=== PATIENT | female | born 1985 | race Caucasian/White ===

== ENCOUNTER 2023-10-22 14:37 | Inpatient (IN) | payer MEDICAID, SELFPAY ==
[2023-10-22 14:54] VITALS: BP 125/78; PULSE 91; RESP 16; TEMP 36.9; O2SAT 97
--- NOTE | 2023-10-22 15:55 | USR_ITS ---
PROCEDURE INFORMATION: Exam: US Left Limited Joint or Other Non-Vascular Extremity Structure Exam date and time: 10/22/2023 4:12 PM Age: 38 years old Clinical indication: Swelling; Arm, upper; Left; Additional info: Abscess L axilla TECHNIQUE: Imaging protocol: US left limited joint or other nonvascular extremity structure. Real-time ultrasound with image documentation. COMPARISON: No relevant prior studies available. FINDINGS: Soft tissues: Minimal soft tissue edema. No loculated collections. US/US soft tissue/extremity 19409 IMPRESSION: Minimal soft tissue edema. No abscess.
--- NOTE | 2023-10-22 15:59 | ED_ITS ---
HPI - Wound/Laceration 2 General: Chief Complaint: Wound/Laceration Stated Complaint: spider bite Time Seen by Provider: 10/22/23 15:38 History of Present Illness: 38-year-old female presents emergency ro om with complaints of open wound in the left axilla. She has a abrasion partial-thickness to the skin on the left forearm that is reddened and inflamed with proximal redness extending up into the left axilla there is a wound in the axilla with an abscess that has opened and drained somewhat. The overlying skin has sloughed off and the adjacent areas is tender to touch. Patient is concerned she was bit by a spider Associated symptoms: Denies chills or fever(s) Related Data Home Medications Medication Instructions Recorded Confirmed No Known Home Medications 04/01/23 04/01/23 Allergies Allergy/AdvReac Type Severity Reaction Status Date / Time No Known Allergies Allergy Verified 10/22/23 15:00 Review of Systems 2 Const: Denies: fever(s) or chills Card: Denies: chest pain Resp: Denies: dyspnea GI: Denies: abdominal pain : Denies: dysuria, urinary frequency or urinary urgency Musc: Denies: neck pain or back pain Skin/Breast: Reports: rash, erythema, skin pain, skin tenderness and new lesions PFSH ED 2 PFSH: Medical History (Updated 10/23/23 @ 15:23 by Jabari Miles DO) No significant past medical history Surgical History (Updated 10/22/23 @ 17:59 by Renato Caldera MD) No significant past surgical history Social History Smoking and tobacco/nicotine status: never used tobacco/nicotine Second hand smoke exposure: No Alcohol intake: never Substance/Drug Use: never Adopted: No Caregiver/support person: No Lives independently: Yes Household members: family Housing: House Marital status: Number of children: 2 service: No Physical Exam 2 Const: COMMON NORMALS: no acute distress GENERAL APPEARANCE: cooperative and comfortable ORIENTATION/CONSCIOUSNESS: Yes awake, Yes oriented to person, Yes oriented to place and Yes oriented to time HENMT: COMMON NORMALS: normocephalic, atraumatic and hearing grossly normal bilaterally HEAD & SCALP: normocephalic and atraumatic Resp: COMMON NORMALS: normal respiratory effort, No retractions, No use of accessory muscles and clear to auscultation bilaterally AUSCULTATION: clear to auscultation bilaterally Cardio: COMMON NORMALS: regular rate, regular rhythm and No murmurs present (Cardio) RATE: regular rate RHYTHM: regular rhythm GI: COMMON NORMALS: Soft to palpation and No hepatosplenomegaly present A USCULTATION: Yes normoactive bowel sounds PALPATION: Yes Soft to palpation, No Tenderness to palpation present (GI), No Guarding due to palpation present (GI) and Yes No hepatosplenomegaly present Extremity: COMMON NORMALS: capillary refill normal, no clubbing, cyanosis or edema, no calf tenderness and no pedal edema OTHER: Large abrasion overlying the volar surface of forearm from a grinder set up operator centerless. There is lymphangitic spread proximally on the medial upper arm and a draining abscess near the axilla. No purulence at this time small open wound some sloughed off overlying skin Neuro: SENSORIUM/ORIENTATION: Yes oriented to person, Yes oriented to place and Yes oriented to time Skin: COMMON NORMALS: no rashes or lesions noted GENERAL SKIN EXAM: no rashes or lesions noted Course 2 Vital Signs: Vital signs: Vital Signs Temperature 98.2 F 10/23/23 12:06 Pulse Rate 76 10/23/23 12:06 Respiratory Rate 16 10/23/23 12:06 Blood Pressure 120/77 10/23/23 12:06 Pulse Oximetry 94 10/23/23 12:06 Oxygen Delivery Me thod Room Air 10/23/23 12:06 MDM - Wound/Laceration Medical Decision Making Suspect this may have emanated from the abrasion from a grinder set up operator centerless on her forearm. Ultrasound the soft tissue did not show any abscess areas. Will start her on vancomycin and cefepime. Additionally patient has significant leukocytopenia. This could possibly fever from the Bactrim. Will hold that cover with other antibiotics will need to be in reverse isolation discussed with hospitalist orders written Medical Records I reviewed the patient's medical records. Lab Data I reviewed the patient's lab results. 10/23/23 03:18 10/23/23 03:18 Radiology Impressions Soft Tissue Ultrasound 10/22/23 15:55 IMPRESSION: Minimal soft tissue edema. No abscess. Forearm CT 10/22/23 20:34 IMPRESSION: 1. Mild subcutaneous fat stranding along the extensor surface of the proximal forearm without abscess formation. 2. No acute osseous findings. Humerus CT 10/22/23 20:34 IMPRESSION: Mild subcutaneous fat stranding and mild skin thickening along the medial/posterior aspect of the upper arm and the anterior axilla. Findings may represent cellulitis. No abscess formation. No definite involvement of the muscular compartments and no evidence of acute osteomyelitis. Laboratory Results WBC 0.75 10^3/uL (3.29-11.43) L* 10/22/23 16:08 RBC 4.95 10^6/uL (3.85-5.65) 10/22/23 16:08 Hgb 14.50 g/dL (11.27-16.99) 10/22/23 16:08 Hct 43.4 % (36-47) 10/22/23 16:08 MCV 87.7 fl (85-98) 10/22/23 16:08 MCH 29.3 pg (27-33) 10/22/23 16:08 MCHC 33.4 g/dL (30-55) 10/22/23 16:08 RDW 12.2 % (12.1-15.1) 10/22/23 16:08 Plt Count 267 10^3/cmm (157-399) 10/22/23 16:08 MPV 8.4 fL (7.4-10.4) 10/22/23 16:08 Neut % (Auto) 1.4 % 10/22/23 16:08 Lymph % (Auto) 78.7 % 10/22/23 16:08 [place] % (Auto) 17.3 % 10/22/23 16:08 Eos % (Auto) 0.0 % 10/22/23 16:08 Baso % (Auto) 1.3 % 10/22/23 16:08 Neut # (Auto) 0.01 10^3/uL (1.8-7.7) L* 10/22/23 16:08 Lymph # (Auto) 0.6 10^3/uL (0.8-4.8) L 10/22/23 16:08 [place] # (Auto) 0.1 10^3/uL (0.2-0.9) L 10/22/23 16:08 Eos # (Auto) 0.0 10^3/uL (0.0-0.8) 10/22/23 16:08 Baso # (Auto) 0.0 10^3/uL (0.0-0.1) 10/22/23 16:08 Nucleated RBC % (auto) 0 % 10/22/23 16:08 Nucleated RBCs # 0.0 /100WBC 10/22/23 16:08 ESR 24 mm/hr (0-15) H 10/22/23 16:08 PT 13.10 SECONDS (12.1-14.9) 10/22/23 16:08 INR 0.96 (0.8-1.2) 10/22/23 16:08 Sodium 141 mmol/L (136-145) 10/22/23 16:08 Potassium 3.6 mmol/L (3.5-5.1) 10/22/23 16:08 Chloride 102 mmol/L (98-107) 10/22/23 16:08 Carbon Dioxide 25 mmol/L (22-29) 10/22/23 16:08 Anion Gap 17.6 (5-19) 10/22/23 16:08 BUN 7 mg/dL (6-20) 10/22/23 16:08 Creatinine 0.8 mg/dL (0.5-0.9) 10/22/23 16:08 GFR Calculation 79.9 mL/min (90-130) L 10/22/23 16:08 Glucose 102 mg/dL (65-115) 10/22/23 16:08 Calculated Osmolality 290 mOsm/kg (285-295) 10/22/23 16:08 Lactic Acid 1.9 mmol/L (0.5-2.2) 10/22/23 16:08 Calcium 9.6 mg/dL (8.5-10.5) 10/22/23 16:08 Ferritin 155 ng/mL (15-150) H 10/22/23 16:08 Total Bilirubin 0.3 mg/dL (0.15-1.2) 10/22/23 16:08 AST 34 U/L (0-32) H 10/22/23 16:08 ALT 98 U/L (0-33) H 10/22/23 16:08 Alkaline Phosphatase 135 U/L (35-105) H 10/22/23 16:08 Creatine Kinase 48 U/L (26-192) 10/22/23 16:08 C-Reactive Protein 85.2 mg/L (0.0-4.9) H 10/22/23 16:08 Total Protein 7.8 g/dL (6.6-8.7) 10/22/23 16:08 Albumin 4.1 g/dL (3.5-5.2) 10/22/23 16:08 Globulin 3.7 g/dL (1.3-4.6) 10/22/23 16:08 Procalcitonin 0.06 ng/mL (0-0.5) 10/22/23 16:08 TSH 1.61 uIU/mL (0.27-4.20) 10/22/23 16:08 Ser , Semi-Qnt 1.00 mIU/mL 10/22/23 16:08 Hepatitis A IgM Ab Non-reactive (Nonreactive) 10/22/23 16:08 Hep Bs Antigen Non-reactive (Nonreactive) 10/22/23 16:08 Hep B Core IgM Ab Non-reactive (Nonreactive) 10/22/23 16:08 Hepatitis C Antibody Non-reactive (Nonreactive) 10/22/23 16:08 HIV 1&2 Ab & HIV 1 Ag Non-reactive (Non-Reactiv) 10/22/23 16:08 HIV 1&2 Antibody Non-reactive (Non-Reactiv) 10/22/23 16:08 All radiology interpretation(s) finalized by discharge Discharge Plan Discharge Patient Disposition: Admitted As Inpatient Admit Provider: Renato Caldera Clinical Impression: Cellulitis, Leukopenia, Transaminitis, Abrasion Condition: Stable Coding Level of Care Code ED 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
[2023-10-22 16:18] LABS: Basophils % 1.3 %; Hematocrit 43.4 % (36-47); Lymphocytes # 0.6 10^3/uL (0.8-4.8); Lymphocytes % 78.7 %; Mean Corpuscular HGB Conc 33.4 g/dL (30-55); Mean Corpuscular Hemoglobin 29.3 pg (27-33); Mean Corpuscular Volume 87.7 fl (85-98); Mean Platelet Volume 8.4 fL (7.4-10.4); Monocytes # 0.1 10^3/uL (0.2-0.9); Monocytes % 17.3 %; Neutrophils % 1.4 %; Nucleated Red Blood Cells % 0 %; Platelet Count 267 10^3/cmm (157-399); Red Blood Count 4.95 10^6/uL (3.85-5.65); Red Cell Distribution Width 12.2 % (12.1-15.1)
[2023-10-22 16:36] LABS: Alanine Aminotransferase 98 U/L (0-33); Albumin Level 4.1 g/dL (3.5-5.2); Alkaline Phosphatase 135 U/L (35-105); Anion Gap 17.6 (5-19); Aspartate Amino Transferase 34 U/L (0-32); Blood Urea Nitrogen 7 mg/dL (6-20); Calcium 9.6 mg/dL (8.5-10.5); Carbon Dioxide 25 mmol/L (22-29); Chloride 102 mmol/L (98-107); Creatinine Clr Calc Pharmacy 102.7607; Globulin 3.7 g/dL (1.3-4.6); Glomerular Filtration Rate 79.9 mL/min (90-130); Glucose 102 mg/dL (65-115); Osmolality Calculated 290 mOsm/kg (285-295); Potassium 3.6 mmol/L (3.5-5.1); Sodium 141 mmol/L (136-145); Total Bilirubin 0.3 mg/dL (0.15-1.2); Total Protein 7.8 g/dL (6.6-8.7)
[2023-10-22 16:37] LABS: Lactic Sepsis W/Reflex 1.9 mmol/L (0.5-2.2)
[2023-10-22 16:44] VITALS: RESP 18; O2SAT 98
[2023-10-22 17:03] LABS: Neutrophils # 0.01 10^3/uL (1.8-7.7); Slide Review Slide Review Perform; White Blood Count 0.75 10^3/uL (3.29-11.43)
[2023-10-22 17:38] LABS: Erythrocyte Sedimentation Rate 24 mm/hr (0-15)
[2023-10-22 17:51] LABS: INR 0.96 (0.8-1.2)
--- NOTE | 2023-10-22 17:58 | P.HP_ITS ---
Providers/Chief Complaint 2 Chief Complaint: spider bite History of Present Illness Joanne Meneses is a 38 year old female with a past medical history of Essure control, history of , who presents [facility] for left arm and forearm swelling with drainage with fevers, chills. Patient tells me that roughly a week ago on Wednesday, she was working outside in her shop, with a metal Wes, she was sanding an object, when it backfired, resulting in a superficial linear laceration of her forearm, slight evidence of bleeding, but the wound was quite superficial she tells me, she that during night, noticed that she developed a bump in her left axilla, she is not sure if this was an insect bite, but over the next few days she started developing fevers, chills, fatigue, malaise, she tells me that along the left axilla she started developing an area of open drainage, with swelling, erythema, tenderness with surrounding erythema, she also started to develop erythema swelling and tenderness for the area that she had a superficial abrasion. She tells me that she does regularly pick takes off herself. She tells her that she saw her primary care provider she did receive a tetanus vaccination through her primary care. She also received 2 rounds of antibiotics including clindamycin, and Bactrim without significant improvement. Due to persistence of erythema, swelling, tenderness and persistent drainage with systemic symptoms of fevers and chills, she came to the emergency room. In the emergency room she was found to have a white blood cell count 0.75, neutrophilic and lymphocytic leukopenia, transaminitis, soft tissue ultrasound does not show any evidence of deep abscess, hospitalist team was called for admission Review of Systems 2 Const: Reports: fever(s) and chills Card: Denies: chest pain Resp: Denies: dyspnea GI: Denies: abdominal pain Skin/Breast: Reports: rash Medications/Allergies Home Medications Medication Instructions Recorded Confirmed Last Taken Type No Known Home Medications 04/01/23 04/01/23 Unknown History Allergies Allergy/AdvReac Type Severity Reaction Status Date / Time No Known Allergies Allergy Verified 10/22/23 15:00 PFSH Acute 2 PFSH: Medical History (Updated 10/22/23 @ 18:03 by Renato Caldera MD) No significant past medical history Surgical History (Updated 10/22/23 @ 17:59 by Renato Caldera MD) No significant past surgical history Social History Smoking and tobacco/nicotine status: never used tobacco/nicotine Second hand smoke exposure: No Alcohol intake: never Substance/Drug Use: never Adopted: No Caregiver/support person: No Lives independently: Yes Household members: family Housing: House Marital status: Number of children: 2 service: No Vitals/I&O/Wt Last Vital Signs Temp 98.4 F 10/22/23 14:54 Pulse 91 10/22/23 14:54 Resp 18 10/22/23 16:44 BP 125/78 10/22/23 14:54 Pulse Ox 98 10/22/23 16:44 O2 Del Method Room Air 10/22/23 16:44 Weight last 48 hrs Weight 68.946 kg Physical Exam 2 Const: COMMON NORMALS: no acute distress and patient oriented x3 HENMT: COMMON NORMALS: normocephalic HEAD & SCALP: normocephalic Resp: COMMON NORMALS: normal respiratory effort, No retractions, No use of accessory muscles and clear to auscultation bilaterally AUSCULTATION: clear to auscultation bilaterally Cardio: COMMON NORMALS: regular rate, regular rhythm, S1 normal heart sound present and S2 normal heart sound present RATE: regular rate RHYTHM: r egular rhythm HEART SOUNDS: S1 normal heart sound present and S2 normal heart sound present GI: COMMON NORMALS: Normal to inspection, nondistended, normoactive bowel sounds present, Soft to palpation and non-tender Extremity: COMMON NORMALS: no calf tenderness and no pedal edema Neuro: COMMON NORMALS: patient oriented x3 Psych: COMMON NORMALS: mental status grossly normal Skin: NARRATIVE SKIN EXAM: Left forearm, superficial abrasion, roughly 10 cm long, with surrounding erythema, no open drainage Enlarged and tender brachial lymph node ? On the arm, area of erythema, measuring 5 x 5 cm, irregular borders with superficial tenderness, palpable purulence but seems superficial, area of open purulent drainage ? Tenderness, axillary lymph node, enlarged ? Tenderness enlarged cervical lymph node Data 10/22/23 16:08 10/22/23 16:08 Micro: Microbiology 10/22/23 17:38 Blood Culture - Preliminary Blood SPECIMEN COLLECTED 10/22/23 16:08 Blood Culture - Preliminary Blood SPECIMEN COLLECTED A&P Assessment and plan (1) Cellulitis: (2) Leukopenia: (3) Transaminitis: Plan Cellulitis -Left forearm, associated with her superficial abrasion from metal Wes, with surrounding erythema no open drainage, no palpable abnormalities, erythematous, swollen, tender, roughly 10 cm long -She also has tender and enlarged brachial lymph nodes -In her forearm she has a area of cellulitis, with superficial palpable areas, currently not drainable -Distal to this near the axilla she has an open area of purulent drainage, roughly 5 x 5 cm -She has tender enlarged axillary lymph nodes -Findings concerning for cellulitis, superficial abscess draining through open area, possible lymphangitis? -Possible insect bite? -Possible tick bite/ -With leukopenia, neutrophilic, lymphocytic -With transaminitis Plan ?Blood cultures -Wound cultures -Vancomycin -Zosyn -Monitor clinical site closely -Isolation precautions given neutropenia -HIV, acute hep panel, tick panel, CPK, Pro-Cameron, CRP, sed rate -Will continue to monitor site closely, currently area in the arm does not seem to need drainage, but as time progresses, the area of cellulitis, might contract, forming an abscess needing drainage -Monitor closely -Full code Lovenox for DVT prophylaxis Attestations 2 Medical Necessity Statement*: Patient requires hospitalization, inpatient, greater than 2 midnights, for leukopenia, with cellulitis, with superficial abscess, transaminitis, associate with skin abrasion Coding Level of Care Code Acute Code for [facility] Diagnoses Cellulitis L03.90 Leukopenia D72.819 Transaminitis R74.01
[2023-10-22 18:05] LABS: Procalcitonin 0.06 ng/mL (0-0.5)
--- NOTE | 2023-10-22 18:11 | PHA.VACGOAL ---
Vancomycin Goal - Goal Vancomycin Goal:: 10-15 mg/L Vancomycin Indication:: Other (SPIDER BITE) - Therapy Current therapy:: Pip/Tazo, Other Antibiotic (DOXYCYLINE) Day of therpy:: Day [1]of [] Actual body weight (kg): 68.946 kg [place] body weight: 40.9 kg Dosing weight (kg): 52.1 kg - Data Labs: WBC 0.75 10^3/uL (3.29-11.43) L* 10/22/23 16:08 RBC 4.95 10^6/uL (3.85-5.65) 10/22/23 16:08 Hgb 14.50 g/dL (11.27-16.99) 10/22/23 16:08 Hct 43.4 % (36-47) 10/22/23 16:08 MCV 87.7 fl (85-98) 10/22/23 16:08 MCH 29.3 pg (27-33) 10/22/23 16:08 MCHC 33.4 g/dL (30-55) 10/22/23 16:08 RDW 12.2 % (12.1-15.1) 10/22/23 16:08 Sodium 141 mmol/L (136-145) 10/22/23 16:08 Potassium 3.6 mmol/L (3.5-5.1) 10/22/23 16:08 Chloride 102 mmol/L (98-107) 10/22/23 16:08 Carbon Dioxide 25 mmol/L (22-29) 10/22/23 16:08 Anion Gap 17.6 (5-19) 10/22/23 16:08 BUN 7 mg/dL (6-20) 10/22/23 16:08 Creatinine 0.8 mg/dL (0.5-0.9) 10/22/23 16:08 GFR Calculation 79.9 mL/min (90-130) L 10/22/23 16:08 Last dialysis session:: N/A Treatment plan:: new consult Regimen:: INITIAL DOSE 1000 MG Q24H Follow up:: TROUGH TO BE OBTAINED PRIOR TO 4TH DOSE WILL MONITOR RENAL FUNCTION AND CONTINUE TO FOLLOW UP <Domenic Landers - Last Filed: 10/22/23 18:11> - Therapy Day of therpy:: Day [3]of [] . Actual body weight (kg): 72.847 g [place] body weight: 43.2 kg Dosing weight (kg): 72.847 - Data Labs: WBC 1.49 10^3/uL (3.29-11.43) L 10/24/23 04:25 RBC 4.24 10^6/uL (3.85-5.65) 10/24/23 04:25 Hgb 12.50 g/dL (11.27-16.99) 10/24/23 04:25 Hct 38.5 % (36-47) 10/24/23 04:25 MCV 90.8 fl (85-98) 10/24/23 04:25 MCH 29.5 pg (27-33) 10/24/23 04:25 MCHC 32.5 g/dL (30-55) 10/24/23 04:25 RDW 12.2 % (12.1-15.1) 10/24/23 04:25 Sodium 139 mmol/L (136-145) 10/24/23 04:25 Potassium 3.6 mmol/L (3.5-5.1) 10/24/23 04:25 Chloride 106 mmol/L (98-107) 10/24/23 04:25 Carbon Dioxide 22 mmol/L (22-29) 10/24/23 04:25 Anion Gap 14.6 (5-19) 10/24/23 04:25 BUN 5 mg/dL (6-20) L 10/24/23 04:25 Creatinine 0.6 mg/dL (0.5-0.9) 10/24/23 04:25 GFR Calculation 111.3 mL/min (90-130) 10/24/23 04:25 Treatment plan:: continue Regimen:: Changed to Vancomycin 1250mg Q12H based on improvement of kidney function Follow up:: will order trough prior to 4th dose <Mikki Fernandez - Last Filed: 10/24/23 07:40>
[2023-10-22 18:28] LABS: C Reactive Protein 85.2 mg/L (0.0-4.9); Creatine Phosphokinase 48 U/L (26-192); Ferritin 155 ng/mL (15-150)
[2023-10-22] MEDS: doxycycline 100 mg Tablet PO (18:48)
[2023-10-22] MEDS: cefepime 1,000 MG in sodium chloride 0.9% (plus) 50 ML 100 MG IV (18:48)
[2023-10-22 18:49] LABS: HIV 1 & 2 Antibody Non-Reactive (Non-Reactiv); HIV 1 & 2 Antigen Non-Reactive (Non-Reactiv)
[2023-10-22] MEDS: vancomycin 1,000 MG in sodium chloride 0.9% 250 ML 250 MG IV (19:22)
[2023-10-22] MEDS: piperacillin-tazobactam 3.375 GM in sodium chloride 0.9% (plus) 50 ML IV (19:22)
[2023-10-22 19:24] VITALS: BP 131/79
[2023-10-22 20:20] VITALS: BP 129/76; PULSE 84; RESP 16; O2SAT 98
--- NOTE | 2023-10-22 20:23 | PC.NURSE ---
Day shift RN ran Zosyn in over 30mins not realizing the order was for 4hrs.
[2023-10-22 20:34] VITALS: BP 128/76; PULSE 86; RESP 20; TEMP 37; O2SAT 97
--- NOTE | 2023-10-22 20:34 | CTR_ITS ---
PROCEDURE INFORMATION: Exam: CT Left Upper Extremity Without Contrast, Upper Arm Exam date and time: 10/22/2023 9:21 PM Age: 38 years old Clinical indication: Swelling; Arm, upper; Upper arm; Patient HX: C/O pain due to cellulities with drainage to left medial axilla, distal medial humerus, and proximal medial forearm. ; Additional info: Arm, cellulitis, lymphangitis, open drainage TECHNIQUE: Imaging protocol: Computed tomography of the left upper extremity without contrast. Exam focused on the upper arm. Radiation optimization: All CT scans at this facility use at least one of these dose optimization techniques: automated exposure control; mA and/or kV adjustment per patient size (includes targeted exams where dose is matched to clinical indication); or iterative reconstruction. COMPARISON: CT forearm LT wo con* [id number] 10/22/2023 9:16 PM RADIATION DOSE METRICS: Total DLP (mGy-cm): 547.71 FINDINGS: Bones/joints: Normal. No acute fracture or dislocation. No cortical irregularity to suggest acute osteomyelitis. Soft tissues: Mild subcutaneous fat stranding with areas of mild skin thickening are seen in the mid to distal upper arm, predominately along the medial/posterior aspect. There is also mild subcutaneous fat stranding in the axillary region anteriorly. No loculated fluid collections. CT/CT humerus LT wo con* [id number] IMPRESSION: Mild subcutaneous fat stranding and mild skin thickening along the medial/posterior aspect of the upper arm and the anterior axilla. Findings may represent cellulitis. No abscess formation. No definite involvement of the muscular compartments and no evidence of acute osteomyelitis.
--- NOTE | 2023-10-22 20:34 | CTR_ITS ---
PROCEDURE INFORMATION: Exam: CT Left Upper Extremity Without Contrast, Forearm Exam date and time: 10/22/2023 9:16 PM Age: 38 years old Clinical indication: Swelling; Arm, lower; Lower or forearm; Patient HX: C/O pain due to cellulities with drainage to left medial axilla, distal medial humerus, and proximal medial forearm. ; Additional info: Swelling pain, area of superfical laceration, cellulitis TECHNIQUE: Imaging protocol: Computed tomography of the left upper extremity without contrast. Exam focused on the forearm. Radiation optimization: All CT scans at this facility use at least one of these dose optimization techniques: automated exposure control; mA and/or kV adjustment per patient size (includes targeted exams where dose is matched to clinical indication); or iterative reconstruction. COMPARISON: US soft tissue/extremity [id number] 10/22/2023 4:12 PM RADIATION DOSE METRICS: Total DLP (mGy-cm): 547.71 FINDINGS: Bones/joints: Normal. No acute fracture or dislocation. No cortical irregularity to suggest osteomyelitis. Soft tissues: Mild subcutaneous fat stranding and skin thickening along the proximal aspect of the forearm, most pronounced along the ulnar/extensor aspect. No loculated fluid collections. No definite involvement of the muscular compartments. CT/CT forearm LT wo con* [id number] IMPRESSION: 1. Mild subcutaneous fat stranding along the extensor surface of the proximal forearm without abscess formation. 2. No acute osseous findings.
[2023-10-22 21:02] LABS: Hepatitis A Antibody IgM Non-Reactive (Nonreactive); Hepatitis B Core IgM Non-Reactive (Nonreactive); Hepatitis B Surface Antigen Non-Reactive (Nonreactive); Hepatitis C Virus Antibody Non-Reactive (Nonreactive)
[2023-10-22 21:27] LABS: Thyroid Stimulating Hormone 1.61 uIU/mL (0.27-4.20)
[2023-10-22 21:54] VITALS: BMI 31.4
[2023-10-22] MEDS: enoxaparin 40 mg/0.4 mL Syringe SUBCUT (22:34)
[2023-10-22] MEDS: sodium chloride 0.9% 1,000 ML 75 ML IV (22:35)
[2023-10-22 23:02] LABS: Charge for UA Resulting for Rev
[2023-10-22 23:04] LABS: Bilirubin Urine Negative (Negative); Blood Urine Negative (Negative); Glucose Urine UA Negative (Normal); Ketones Urine Negative (Negative); Leukocyte Esterase Urine Negative (Negative); Nitrate Urine Negative (Negative); Protein Urine Negative (Negative); Specific Gravity, Urine 1.018 (1.005-1.030); Urine Appearance Clear (CLEAR); Urine Color Yellow (Yellow)
[2023-10-22 23:12] LABS: Bacteria Urine None Seen /hpf; Hyaline Casts Urine 0-4 /lpf; RBC Urine 0-2 /hpf (0-2); WBC Urine 0-5 /hpf (0-5)
[2023-10-22 23:47] VITALS: BP 107/69; PULSE 76; RESP 20; TEMP 36.8; O2SAT 95
[2023-10-23] VITALS (7 sets, daily range): BP systolic 103–157; BP diastolic 68–82; PULSE 76–89; RESP 16–20; TEMP 36.7–37.1; O2SAT 94–97
--- NOTE | 2023-10-23 00:33 | PC.NURSE ---
wound cultures ordered for patient wound on upper left arm. Wound is currently not open and/or draining. Dr Jack was notified and was told to address with morning team. No cultures were obtained due to no drainage
[2023-10-23] MEDS: piperacillin-tazobactam 3.375 GM in sodium chloride 0.9% (plus) 50 ML IV ×3 (01:50→17:45)
[2023-10-23 04:14] LABS: Basophils % 0.9 %; Hematocrit 39.6 % (36-47); Lymphocytes # 0.7 10^3/uL (0.8-4.8); Lymphocytes % 69.8 %; Mean Corpuscular HGB Conc 32.8 g/dL (30-55); Mean Corpuscular Hemoglobin 29.6 pg (27-33); Mean Corpuscular Volume 90.2 fl (85-98); Mean Platelet Volume 8.7 fL (7.4-10.4); Monocytes # 0.3 10^3/uL (0.2-0.9); Monocytes % 25.5 %; Neutrophils % 2.9 %; Nucleated Red Blood Cells % 0 %; Platelet Count 252 10^3/cmm (157-399); Red Blood Count 4.39 10^6/uL (3.85-5.65); Red Cell Distribution Width 12.2 % (12.1-15.1); White Blood Count 1.06 10^3/uL (3.29-11.43)
[2023-10-23 04:47] LABS: Neutrophils # 0.03 10^3/uL (1.8-7.7)
[2023-10-23 04:51] LABS: Alanine Aminotransferase 75 U/L (0-33); Albumin Level 3.5 g/dL (3.5-5.2); Alkaline Phosphatase 116 U/L (35-105); Anion Gap 17.1 (5-19); Aspartate Amino Transferase 32 U/L (0-32); Blood Urea Nitrogen 9 mg/dL (6-20); Calcium 8.9 mg/dL (8.5-10.5); Carbon Dioxide 22 mmol/L (22-29); Chloride 107 mmol/L (98-107); Globulin 3.3 g/dL (1.3-4.6); Glomerular Filtration Rate 93.2 mL/min (90-130); Glucose 136 mg/dL (65-115); Osmolality Calculated 295 mOsm/kg (285-295); Potassium 4.1 mmol/L (3.5-5.1); Sodium 142 mmol/L (136-145); Total Bilirubin 0.3 mg/dL (0.15-1.2); Total Protein 6.8 g/dL (6.6-8.7)
[2023-10-23] MEDS: acetaminophen 325 mg Tablet 650 MG PO ×2 (05:12→11:42)
[2023-10-23] MEDS: doxycycline 100 mg Tablet PO ×2 (07:53→17:45)
[2023-10-23] MEDS: sodium chloride 0.9% 1,000 ML 75 ML IV ×2 (10:18→23:58)
--- NOTE | 2023-10-23 16:45 | P.PN_ITS ---
Subjective 2 Subjective: Patient was seen this morning no fevers, no chills, no nausea, no vomiting, Vitals/I&O/Wt Last Vital Signs Temp 98.2 F 10/23/23 15:56 Pulse 79 10/23/23 15:56 Resp 18 10/23/23 15:56 BP 129/80 10/23/23 15:56 Pulse Ox 95 10/23/23 15:52 O2 Del Method Room Air 10/23/23 15:52 10/23/23 10/23/23 10/23/23 06:59 14:59 22:59 Intake Total 50 / 880 1862.292 / 1862.292 Balance 50 / 880 1862.292 / 1862.292 Weight last 48 hrs Weight 71.713 kg Weight 69.513 kg Weight 68.946 kg Weight 68.946 kg Physical Exam 2 Const: COMMON NORMALS: no acute distress and patient oriented x3 Resp: COMMON NORMALS: normal respiratory effort, No retractions, No use of accessory muscles and clear to auscultation bilaterally AUSCULTATION: clear to auscultation bilaterally Cardio: COMMON NORMALS: regular rate, regular rhythm, S1 normal heart sound present and S2 normal heart sound present RATE: regular rate RHYTHM: r egular rhythm HEART SOUNDS: S1 normal heart sound present and S2 normal heart sound present GI: COMMON NORMALS: Normal to inspection, nondistended, normoactive bowel sounds present and non-tender Extremity: COMMON NORMALS: no pedal edema Neuro: COMMON NORMALS: patient oriented x3 Psych: COMMON NORMALS: mental status grossly normal Skin: NARRATIVE SKIN EXAM: Area of erythema, left arm, significantly improved Data 10/23/23 03:18 10/23/23 03:18 Micro: Microbiology 10/22/23 16:08 Blood Culture - Preliminary Blood NEGATIVE TO DATE 10/22/23 03:43 Gram Stain - Final Axilla Wound Culture - Preliminary 10/22/23 17:38 Blood Culture - Preliminary Blood SPECIMEN COLLECTED A&P Assessment and plan (1) Cellulitis: (2) Leukopenia: (3) Transaminitis: Plan Cellulitis # Failure of outpatient antibiotics -Left forearm, associated with her superficial abrasion from metal Wes, with surrounding erythema no open drainage, no palpable abnormalities, erythematous, swollen, tender, roughly 10 cm long -She also has tender and enlarged brachial lymph nodes -In her forearm she has a area of cellulitis, with superficial palpable areas, currently not drainable -Distal to this near the axilla she has an open area of purulent drainage, roughly 5 x 5 cm -She has tender enlarged axillary lymph nodes -Findings concerning for cellulitis, superficial abscess draining through open area, possible lymphangitis? -Possible insect bite? -Possible tick bite/ -With leukopenia, neutrophilic, lymphocytic -With transaminitis Plan ?Blood cultures -Wound cultures -Vancomycin -Zosyn # Doxycycline -Monitor clinical site closely -Isolation precautions given neutropenia -Will continue to monitor site closely, currently area in the arm does not seem to need drainage, but as time progresses, the area of cellulitis, might contract, forming an abscess needing drainage -Monitor closely -Full code Lovenox for DVT prophylaxis Continues to have area of erythema, swelling, tenderness are along abrasion site, and the left forearm, left arm, requiring IV antibiotics Attestations 2 Medical Necessity Statement*: Patient requires hospitalization for cellulitis, requiring broad-spectrum IV antibiotics Diagnoses Cellulitis L03.90 Leukopenia D72.819 Transaminitis R74.01
[2023-10-23 18:05] LABS: C.Diff PCR (Lab) NEGATIVE (Negative)
[2023-10-23] MEDS: vancomycin 1,000 MG in sodium chloride 0.9% 250 ML 250 MG IV (19:17)
[2023-10-23] MEDS: enoxaparin 40 mg/0.4 mL Syringe SUBCUT (20:02)
[2023-10-24] VITALS: BP 141/81; PULSE 70; RESP 17; TEMP 36.8; O2SAT 97
[2023-10-24] MEDS: piperacillin-tazobactam 3.375 GM in sodium chloride 0.9% (plus) 50 ML IV ×3 (02:34→17:51)
[2023-10-24 04:00] VITALS: BP 123/69; PULSE 72; RESP 19; TEMP 36.7; O2SAT 99
[2023-10-24 04:53] LABS: Basophils % 1.3 %; Hematocrit 38.5 % (36-47); Lymphocytes % 63.8 %; Mean Corpuscular HGB Conc 32.5 g/dL (30-55); Mean Corpuscular Hemoglobin 29.5 pg (27-33); Mean Corpuscular Volume 90.8 fl (85-98); Mean Platelet Volume 8.4 fL (7.4-10.4); Monocytes # 0.4 10^3/uL (0.2-0.9); Monocytes % 24.8 %; Neutrophils % 6.7 %; Nucleated Red Blood Cells % 0 %; Platelet Count 229 10^3/cmm (157-399); Red Blood Count 4.24 10^6/uL (3.85-5.65); Red Cell Distribution Width 12.2 % (12.1-15.1); White Blood Count 1.49 10^3/uL (3.29-11.43)
[2023-10-24 05:13] LABS: Alanine Aminotransferase 55 U/L (0-33); Albumin Level 3.2 g/dL (3.5-5.2); Alkaline Phosphatase 103 U/L (35-105); Anion Gap 14.6 (5-19); Aspartate Amino Transferase 21 U/L (0-32); Blood Urea Nitrogen 5 mg/dL (6-20); Calcium 8.3 mg/dL (8.5-10.5); Carbon Dioxide 22 mmol/L (22-29); Chloride 106 mmol/L (98-107); Creatinine Clr Calc Pharmacy 144.7665; Globulin 2.8 g/dL (1.3-4.6); Glomerular Filtration Rate 111.3 mL/min (90-130); Glucose 103 mg/dL (65-115); Osmolality Calculated 286 mOsm/kg (285-295); Potassium 3.6 mmol/L (3.5-5.1); Sodium 139 mmol/L (136-145); Total Bilirubin 0.2 mg/dL (0.15-1.2)
[2023-10-24 07:48] VITALS: BP 118/77; PULSE 77; RESP 17; TEMP 36.6; O2SAT 95
[2023-10-24] MEDS: doxycycline 100 mg Tablet PO ×2 (08:24→17:51)
[2023-10-24] MEDS: vancomycin 1,250 MG/250 ML PIGGYBACK 166.67 MG IV (10:26)
[2023-10-24] MEDS: diphenoxylate/atropine Tablet 1 TAB PO ×2 (10:30→18:57)
--- NOTE | 2023-10-24 10:35 | P.CONIM_ITS ---
Providers/Reason For Consult 2 Consulting Physician/Specialty*: Dr. Vijay Pineda, DO/General Surgery Reason for Consult*: Left upper extremity infection Attending Physician: Renato Caldera MD History of Present Illness History of Present Illness Joanne Meneses is a 38 year old female who presented to the hospital with a 1 week history of pain swelling and drainage to her left upper extremity. She reports that she was standing object in her garage 1 week ago that became projectile and caused a superficial abrasion to her left forearm. After that she started developing pain and swelling in her left axilla along with fevers. She did go to her primary care physician and received a tetanus vaccine along with clindamycin and Bactrim. She continued to worsen and thus presented to the hospital. She has left forearm and axillary pain that does not radiate. Palpation makes pain worse. Nothing makes pain better. An ultrasound of the left axilla did not show an abscess. General surgery was consulted for possible incision and drainage Review of Systems 2 General: Reports: 10 or more systems reviewed and unremarkable except in HPI and below Medications/Allergies Home Medications Medication Instructions Recorded Confirmed Last Taken Type No Known Home Medications 04/01/23 10/23/23 Unknown History Allergies Allergy/AdvReac Type Severity Reaction Status Date / Time No Known Allergies Allergy Verified 10/22/23 15:00 Current Medications Generic Name Dose Route Start Last Admin Trade Name Freq PRN Reason Stop Dose Admin Acetaminophen 650 mg 10/22/23 20:34 10/23/23 11:42 Acetaminophen 325 Mg Tablet PO 650 mg Q6H PRN Administration Mild/Mod Pain Or Temp >/= 101 Diphenoxylate HCl/Atropine 1 tab 10/24/23 09:09 10/24/23 10:30 Diphenoxylate/Atropine Tablet PO 1 tab Q4H PRN Administration DIARRHEA Doxycycline Monohydrate 100 mg 10/22/23 18:00 10/24/23 08:24 Doxycycline 100 Mg Tablet PO 100 mg BID RITA Administration Protocol Enoxaparin Sodium 40 mg 10/22/23 20:34 10/23/23 20:02 Enoxaparin 40 Mg/0.4 Ml Syringe SUBCUT 40 mg Q24H RITA Administration Piperacillin Sod/Tazobactam 50 mls @ 12.5 mls/hr 10/22/23 18:00 10/24/23 10:27 Sod 3.375 gm/ Sodium Chloride IV 12.5 mls/hr Q8H RITA Administration Sodium Chloride 1,000 mls @ 75 mls/hr 10/22/23 20:34 10/23/23 23:58 Sodium Chloride 0.9% IV 75 mls/hr .[id number] RITA Administration Vancomycin HCl 1,250 mg in 250 mls @ 166.667 mls/hr 10/24/23 08:00 10/24/23 10:26 Vancocin IV 166.67 mls/hr Q12H RITA Administration PFSH Acute 2 PFSH: Medical History No significant past medical history Surgical History No significant past surgical history Social History Smoking and tobacco/nicotine status: never used tobacco/nicotine Second hand smoke exposure: No Alcohol intake: never Substance/Drug Use: never Adopted: No Caregiver/support person: No Lives independently: Yes Household members: family Housing: House Marital status: Number of children: 2 service: No Female Reproductive History: Date of last menstrual period: 09/25/23 Vitals/I&O/Wt Last Vital Signs Temp 98 F 10/24/23 07:48 Pulse 77 10/24/23 07:48 Resp 17 10/24/23 07:48 BP 118/77 10/24/23 07:48 Pulse Ox 95 10/24/23 07:48 O2 Del Method Room Air 10/24/23 07:48 10/23/23 10/24/23 10/24/23 22:59 06:59 14:59 Intake Total 730 / 2592.292 1050 / 3642.292 290 / 290 Balance 730 / 2592.292 1050 / 3642.292 290 / 290 Weight last 48 hrs Weight 2.57 oz Weight 160 lb 9.6 oz Weight 158 lb 1.6 oz Weight 153 lb 4 oz Weight 152 lb Physical Exam 2 Narrative: General : Patient is well developed , no acute distress, oriented x3 Head : Normal cephalic, a-traumatic. Ears : Pinnae and external canal are normal. Hearing is normal. Eyes : PERRLA, Sclera and injection are normal. No conjunctival discharge. Nose : Mucous membranes are without erythema. Throat : buccal mucosa is normal, gums are without significant recession or hypertrophy. Lungs : Equal chest rise bilaterally, no use of accessory muscles, trachea is midline. Cor : Rate and rhythm are normal. Abdomen : There is an abrasion to the left forearm along with cellulitis and some induration in the left axilla. No fluctuance or purulence at this time Back : non-tender to palpation, no CVA tenderness. Neuro : CN II - XII intact, Upper and lower extremities have equal and full strength Data 10/24/23 04:25 10/24/23 04:25 Micro: Microbiology 10/22/23 17:38 Blood Culture - Preliminary Blood NEGATIVE TO DATE 10/22/23 16:08 Blood Culture - Preliminary Blood NEGATIVE TO DATE 10/22/23 03:43 Gram Stain - Final Axilla Wound Culture - Preliminary A&P Assessment and plan (1) Cellulitis: Plan N.p.o. after midnight I will reexamine her in the morning. If she has gotten worse or perhaps even if she has not gotten any better, we will consider incision and drainage of left axillary wound. The risks and benefits of procedure, including but limited to, bleeding, infection, scar, numbness, pain, damage surrounding structures, were explained to the patient. She is understanding of the risks and wishes to proceed Medical management per hospitalist Coding Level of Care Code 92710 Diagnoses Cellulitis L03.90
--- NOTE | 2023-10-24 10:55 | P.PN_ITS ---
Subjective 2 Subjective: Patient was seen this morning, she continues to complain of significant tenderness especially in her axilla, no fevers, no chills, no nausea, no vomiting Vitals/I&O/Wt Last Vital Signs Temp 98 F 10/24/23 07:48 Pulse 77 10/24/23 07:48 Resp 17 10/24/23 07:48 BP 118/77 10/24/23 07:48 Pulse Ox 95 10/24/23 07:48 O2 Del Method Room Air 10/24/23 07:48 10/23/23 10/24/23 10/24/23 22:59 06:59 14:59 Intake Total 730 / 2592.292 1050 / 3642.292 293.333 / 293.333 Balance 730 / 2592.292 1050 / 3642.292 293.333 / 293.333 Weight last 48 hrs Weight 72.847 g Weight 72.847 kg Weight 71.713 kg Weight 69.513 kg Weight 68.946 kg Physical Exam 2 Const: COMMON NORMALS: no acute distress and patient oriented x3 Resp: COMMON NORMALS: normal respiratory effort, No retractions, No use of accessory muscles and clear to auscultation bilaterally AUSCULTATION: clear to auscultation bilaterally Cardio: COMMON NORMALS: regular rate, regular rhythm, S1 normal heart sound present and S2 normal heart sound present RATE: regular rate RHYTHM: r egular rhythm HEART SOUNDS: S1 normal heart sound present and S2 normal heart sound present GI: COMMON NORMALS: Normal to inspection, nondistended, normoactive bowel sounds present and non-tender Extremity: COMMON NORMALS: no pedal edema Neuro: COMMON NORMALS: patient oriented x3 Psych: COMMON NORMALS: mental status grossly normal Data 10/24/23 04:25 10/24/23 04:25 Micro: Microbiology 10/22/23 17:38 Blood Culture - Preliminary Blood NEGATIVE TO DATE 10/22/23 16:08 Blood Culture - Preliminary Blood NEGATIVE TO DATE 10/22/23 03:43 Gram Stain - Final Axilla Wound Culture - Preliminary A&P Assessment and plan (1) Cellulitis: (2) Leukopenia: (3) Transaminitis: Plan Cellulitis # Failure of outpatient antibiotics # 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, 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 [place] -This morning she continues to have significant axillary tenderness, with a palpable lesion, associated with area of purulent drainage concerning for possible abscess, area of erythema of her arm has persisted in by PD and today has worsened to some degree, her arm area of erythema swelling tenderness does have some palpable abnormalities but they seem overall superficial, the area of cellulitis in her elbow area has improved, erythema has improved, no tenderness, her forearm area in which she had the sandblaster injury continues to have purulent drainage area of erythema is actually worse this morning -She has tender enlarged axillary lymph nodes -Findings concerning for cellulitis, superficial abscess draining through open area, possible lymphangitis? -Possible insect bite? -With leukopenia, neutrophilic, lymphocytic -With transaminitis Plan ?Blood cultures -Wound cultures -Vancomycin -Zosyn # Doxycycline -Monitor clinical site closely -Isolation precautions given neutropenia -Consult general surgery for drainage -Monitor closely -Full code Lovenox for DVT prophylaxis As patient continues to have purulent drainage from the forearm and actually palpable defect in the axilla associated with the cellulitis in her arm, concerning for deep abscess, consult general surgery for consideration of incision and drainage, will also discussed with infectious disease Attestations 2 Medical Necessity Statement*: Patient requires hospitalization for cellulitis, abscess, Diagnoses Cellulitis L03.90 Leukopenia D72.819 Transaminitis R74.01
[2023-10-24 12:01] VITALS: BP 116/75; PULSE 88; RESP 18; TEMP 36.7; O2SAT 96
--- NOTE | 2023-10-24 14:25 | PC.NURSE ---
Visitor of patient complained to a floor nurse that the patient's bedding had not been changed in 3 days. Patient's POLICEMAN happened to be sitting right next to the patient's nurse and the nurse who reported the complaint and stated that she offered to change her sheets yesterday and patient said it's fine . When asked, patient denied that she was ever asked but then said I may not have understood her.
[2023-10-24 16:01] VITALS: BP 114/72; PULSE 75; RESP 18; TEMP 36.8; O2SAT 95
[2023-10-24] MEDS: sodium chloride 0.9% 1,000 ML 75 ML IV (17:51)
[2023-10-24 20:00] VITALS: BP 122/74; PULSE 79; RESP 16; TEMP 36.9; O2SAT 98
[2023-10-24] MEDS: enoxaparin 40 mg/0.4 mL Syringe SUBCUT (20:01)
[2023-10-25] VITALS (20 sets, daily range): BP systolic 100–138; BP diastolic 55–90; PULSE 61–83; RESP 16–20; TEMP 36.4–37.1; O2SAT 93–99
[2023-10-25] MEDS: vancomycin 1,250 MG/250 ML PIGGYBACK 166.67 MG IV (00:19)
[2023-10-25] MEDS: piperacillin-tazobactam 3.375 GM in sodium chloride 0.9% (plus) 50 ML IV ×2 (04:50→20:52)
[2023-10-25] MEDS: sodium chloride 0.9% 1,000 ML 75 ML IV ×2 (04:51→20:53)
[2023-10-25 05:03] LABS: Basophils % 1.8 %; Hematocrit 40.5 % (36-47); Lymphocytes # 1.3 10^3/uL (0.8-4.8); Lymphocytes % 55.8 %; Mean Corpuscular HGB Conc 32.1 g/dL (30-55); Mean Corpuscular Hemoglobin 29.1 pg (27-33); Mean Corpuscular Volume 90.6 fl (85-98); Mean Platelet Volume 8.5 fL (7.4-10.4); Monocytes # 0.4 10^3/uL (0.2-0.9); Monocytes % 17.7 %; Neutrophils % 13.6 %; Nucleated Red Blood Cells % 0 %; Platelet Count 271 10^3/cmm (157-399); Red Blood Count 4.47 10^6/uL (3.85-5.65); Red Cell Distribution Width 12.2 % (12.1-15.1); White Blood Count 2.26 10^3/uL (3.29-11.43)
[2023-10-25 05:19] LABS: Neutrophils # 0.31 10^3/uL (1.8-7.7)
[2023-10-25 05:41] LABS: Alanine Aminotransferase 44 U/L (0-33); Albumin Level 3.4 g/dL (3.5-5.2); Alkaline Phosphatase 106 U/L (35-105); Anion Gap 15.9 (5-19); Aspartate Amino Transferase 16 U/L (0-32); Blood Urea Nitrogen 5 mg/dL (6-20); Calcium 8.6 mg/dL (8.5-10.5); Carbon Dioxide 20 mmol/L (22-29); Chloride 107 mmol/L (98-107); Creatinine Clr Calc Pharmacy 0.1451; Globulin 2.9 g/dL (1.3-4.6); Glomerular Filtration Rate 111.3 mL/min (90-130); Glucose 108 mg/dL (65-115); Osmolality Calculated 286 mOsm/kg (285-295); Potassium 3.9 mmol/L (3.5-5.1); Sodium 139 mmol/L (136-145); Total Bilirubin 0.2 mg/dL (0.15-1.2); Total Protein 6.3 g/dL (6.6-8.7)
[2023-10-25] MEDS: doxycycline 100 mg Tablet PO (08:26)
[2023-10-25] MEDS: diphenoxylate/atropine Tablet 1 TAB PO (08:30)
--- NOTE | 2023-10-25 08:35 | PM.PN ---
Vitals/I&O/Wt Last Vital Signs Temp 98.1 F 10/25/23 07:30 Pulse 75 10/25/23 07:30 Resp 18 10/25/23 07:30 BP 132/82 10/25/23 07:30 Pulse Ox 99 10/25/23 07:30 O2 Del Method Room Air 10/25/23 07:30 10/24/23 10/25/23 10/25/23 22:59 06:59 14:59 Intake Total 1256.667 / 3280.000 1075 / 4355.000 Output Total 400 / 400 Balance 856.667 / 2880.000 1075 / 3955.000 Weight last 48 hrs Weight 160 lb 3.2 oz Weight 2.57 oz Weight 160 lb 9.6 oz Data 10/25/23 04:47 10/25/23 04:47 Micro: Microbiology 10/22/23 03:43 Gram Stain - Final Axilla Anaerobic Culture - Preliminary Wound Culture - Preliminary Gram Negative Rods A&P Assessment and plan (1) Cellulitis: Plan Incision and drainage left arm abscess The risks and benefits of procedure, including but limited to, bleeding, infection, scar, numbness, pain, damage surrounding structures, were explained to the patient. She is understanding of the risks and wishes to proceed Medical management per hospitalist Procedure will be about 1:00 today Attestations Medical Necessity Statement*: per primary Coding Level of Care Code Acute Code for [facility] Diagnoses Cellulitis L03.90
--- NOTE | 2023-10-25 09:37 | PC.CHAP ---
Pastoral Care Encounter/Spiritual Assessment Type of Contact [] Declined foreign clerk visit [] Patient/Family/Request visit [] Outpatient visit [] Follow-up visit [] Physician referral [] Code/Alert [x] Routine visit [] Staff referral [] Actively dying [] Patient sleeping [] Family support [] [] Out of room [] Palliative care [] [] Receiving care in room [] Pre-surgical visit [] Trauma [] Long length of stay [] ICU visit [] Other: Relational/Emotional Strength [] Patient feels connected with others/family/visitors/staff [] Distress [] Loneliness/isolation [] Abandonment Spirituality of Patient [] Person of [place] [] Attends Zoroastrian of their [place] [] Believes in Prayer [] Reads Bible or Congregation materials [] There are Spiritual issues to be addressed Fire Pilot Interventions [x] Prayer [] Active listening [] Non-anxious presence [] Spiritual/emotional support [] Crisis/trauma care [] Spiritual counseling [] Bereavement support [] Provided bereavement packet [] Provided Bible/devotional materials [] Provided toy/stuffed animal, coloring book to patient or family member [] Provided Communion [] Anointing/[place] [] Salvation [] Completed spiritual assessment [] Other: Impact on Illness or Injury [] Angry [] Fearful [] Anxious [] Often cries [] Exhaustion [] Unable to work [] Unable to attend yarsani [] Unable to walk/stand [] Unable to read [] Unable to drive [] Unable to eat/drink [] Unable to sleep [] Unable to be with family [] Patient intubated [] Other: Summary precaution Time spent with patient
[2023-10-25 11:45] LABS: Methicillin-Resist S.aureu PCR NOT DETECTED (NOT DETECTED)
[2023-10-25 12:10] LABS: Vancomycin Trough 5.7 ug/mL (10-15)
[2023-10-25 12:33] LABS: OR HCG Qualitative Urine Negative (Negative)
--- NOTE | 2023-10-25 12:38 | P.ANESASSM_ITS ---
Pre-Anesthetic Assessment Height/Weight: Height 1.49 m Weight 72.665 kg Temp Pulse Resp BP Pulse Ox O2 Del Method 98.3 F 75 17 138/90 98 Room Air 10/25/23 12:00 10/25/23 12:00 10/25/23 12:00 10/25/23 12:00 10/25/23 12:00 10/25/23 12:00 Operation Date: 10/25/23 13:15 Proposed Procedures p Incision And Drainage of left arm abscess(Left) - Vijay Pineda DO Familial anesthetic complications: None Was Beta Dyan taken within 24 hours: N/A Was Clonidine taken within 24 hours: N/A Last intake: Intake Last Liquid Date 10/25/23 Last Liquid Time 09:00 Last Solid Date 10/24/23 Last Solid Time 22:00 Social No alcohol and No tobacco Exam alert, oriented x 3, clear to auscultation bilaterally and regular rate & rhythm Airway Mallampati: Class I Dentition: chipped Anesthetic Plan ASA status: 1 Anesthesia: Choice Risk of > 500 ml blood loss (7ml/kg in children): No Medications/Allergies Home Medications Medication Instructions Recorded Confirmed Last Taken Type No Known Home Medications 04/01/23 10/23/23 Unknown History Allergies Allergy/AdvReac Type Severity Reaction Status Date / Time No Known Allergies Allergy Verified 10/22/23 15:00 Current Medications Generic Name Dose Route Start Last Admin Trade Name Wilsonq PRN Reason Stop Dose Admin Acetaminophen 650 mg 10/22/23 20:34 10/23/23 11:42 Acetaminophen 325 Mg Tablet PO 650 mg Q6H PRN Administration Mild/Mod Pain Or Temp >/= 101 Diphenoxylate HCl/Atropine 1 tab 10/24/23 09:09 10/25/23 08:30 Diphenoxylate/Atropine Tablet PO 1 tab Q4H PRN Administration DIARRHEA Doxycycline Monohydrate 100 mg 10/22/23 18:00 10/25/23 08:26 Doxycycline 100 Mg Tablet PO 100 mg BID RITA Administration Protocol Enoxaparin Sodium 40 mg 10/22/23 20:34 10/24/23 20:01 Enoxaparin 40 Mg/0.4 Ml Syringe SUBCUT 40 mg Q24H RITA Administration Piperacillin Sod/Tazobactam 50 mls @ 12.5 mls/hr 10/22/23 18:00 10/25/23 09:37 Sod 3.375 gm/ Sodium Chloride IV Infused Q8H RITA Infusion Sodium Chloride 1,000 mls @ 75 mls/hr 10/22/23 20:34 10/25/23 04:51 Sodium Chloride 0.9% IV 75 mls/hr .[id number] RITA Administration PFSH Anesthesia Medical History No significant past medical history Surgical History No significant past surgical history Social History Smoking and tobacco/nicotine status: never used tobacco/nicotine Second hand smoke exposure: No Alcohol intake: never Substance/Drug Use: never Adopted: No Caregiver/support person: No Lives independently: Yes Household members: family Housing: House Marital status: Number of children: 2 service: No Female Reproductive History Date of last menstrual period: 09/25/23 Data Anesthesia 10/25/23 04:47 10/25/23 04:47 Short CBC 10/24/23 10/25/23 Range/Units 04:25 04:47 WBC 1.49 L 2.26 L (3.29-11.43) 10^3/uL Hgb 12.50 13.00 (11.27-16.99) g/dL Hct 38.5 40.5 (36-47) % MCV 90.8 90.6 (85-98) fl Plt Count 229 271 (157-399) 10^3/cmm Neut % (Auto) 6.7 13.6 % Neut # (Auto) 0.10 L* 0.31 L* (1.8-7.7) 10^3/uL BMP 10/24/23 10/25/23 04:25 04:47 Sodium 139 139 Potassium 3.6 3.9 Chloride 106 107 Carbon Dioxide 22 20 L BUN 5 L 5 L Creatinine 0.6 0.6 Glucose 103 108 Calcium 8.3 L 8.6 Liver Function 10/24/23 10/25/23 Range/Units 04:25 04:47 Total Bilirubin 0.2 0.2 (0.15-1.2) mg/dL AST 21 16 (0-32) U/L ALT 55 H 44 H (0-33) U/L Alkaline Phosphatase 103 106 H (35-105) U/L Albumin 3.2 L 3.4 L (3.5-5.2) g/dL Microbiology 10/22/23 03:43 Gram Stain - Final Axilla Anaerobic Culture - Preliminary Wound Culture - Final Pseudomonas aeruginosa Cardiac Studies: 2 No Data to Display
[2023-10-25] MEDS: sodium chloride 0.9% 1,000 ML 30 ML IV (13:05)
--- NOTE | 2023-10-25 13:40 | PM.OP ---
Operative Report Date of procedure: October 25, 2023 Pre-op diagnosis: Left arm abscess Post-op diagnosis: same Procedure done: Incision and drainage left arm abscess Implants: Quarter inch iodoform packing gauze Specimens removed/disposition: Cultures Surgeon: Vijay Pineda DO Anesthesia: General and Local Estimated blood loss (mL): 5 Complications: None apparent Brief History: This very pleasant 38-year-old female who presented to the hospital with a left arm abscess. Incision and drainage was indicated. The risks and benefits were explained and documented. Procedure: Patient was wheeled operative room placed on the OR table in the supine position. General endotracheal intubation was achieved by department anesthesia. The left arm and axilla were inspected prepped and draped in usual sterile fashion. Timeout was performed. All present were in agreement. 2% lidocaine with epinephrine was used to anesthetize the skin overlying the abscess. A 15 blade scalpel was then used to make a 1 cm incision, extending the opening of the abscess. Hemostats were used to probe the abscess cavities and purulence was drained. Cultures were taken. The abscess cavity was further probed with hemostats and all loculations were broken. Normal saline was used to irrigate the abscess cavity. Quarter inch iodoform packing gauze was packed into the abscess cavity. Sterile bandages were applied. Patient tolerated procedure well.
--- NOTE | 2023-10-25 14:08 | PM.PN ---
Subjective Subjective: Patient was seen this morning, she reports increased pain and drainage from her left axillary site, no fevers, chills Vitals/I&O/Wt Last Vital Signs Temp 98.3 F 10/25/23 12:52 Pulse 68 10/25/23 12:52 Resp 17 10/25/23 12:52 BP 131/82 10/25/23 12:52 Pulse Ox 97 10/25/23 12:52 O2 Del Method Room Air 10/25/23 12:00 10/24/23 10/25/23 10/25/23 22:59 06:59 14:59 Intake Total 1256.667 / 3280.000 1075 / 4355.000 50 / 50 Output Total 400 / 400 Balance 856.667 / 2880.000 1075 / 3955.000 50 / 50 Weight last 48 hrs Weight 72.665 kg Weight 72.847 g Weight 72.847 kg Physical Exam Const: COMMON NORMALS: no acute distress and patient oriented x3 Resp: COMMON NORMALS: normal respiratory effort, No retractions, No use of accessory muscles and clear to auscultation bilaterally AUSCULTATION: clear to auscultation bilaterally Cardio: COMMON NORMALS: regular rate, regular rhythm, S1 normal heart sound present and S2 normal heart sound present RATE: regular rate RHYTHM: regular rhythm HEART SOUNDS: S1 normal heart sound present and S2 normal heart sound present GI: COMMON NORMALS: Normal to inspection, nondistended, normoactive bowel sounds present and non-tender Extremity: COMMON NORMALS: no pedal edema NARRATIVE EXTREMITY EXAM: Area of erythema along forearm has significantly improved, elbow area of erythema has significantly resolved, area of erythema left arm, has now concentrated itself around the open area of drainage, with palpable mass underneath, feels like it deep abscess, does have significant tenderness Neuro: COMMON NORMALS: patient oriented x3 Psych: COMMON NORMALS: mental status grossly normal Data 10/25/23 04:47 10/25/23 04:47 Micro: Microbiology 10/22/23 03:43 Gram Stain - Final Axilla Anaerobic Culture - Preliminary Wound Culture - Final Pseudomonas aeruginosa A&P Assessment and plan (1) Cellulitis: (2) Leukopenia: (3) Transaminitis: Plan Cellulitis # Failure of outpatient antibiotics # 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 -Possible insect bite? -With leukopenia, neutrophilic, lymphocytic -With transaminitis Plan ?Blood cultures -Wound cultures -Vancomycin -Zosyn # Doxycycline -Monitor clinical site closely -Isolation precautions given neutropenia -Consult general surgery for drainage today -Infectious disease consulted -Monitor closely -Full code Lovenox for DVT prophylaxis Plan for today incision and drainage IV antibiotics, follow cultures Attestations Medical Necessity Statement*: Patient requires hospitalization for cellulitis, abscess, left axilla, Diagnoses Cellulitis L03.90 Leukopenia D72.819 Transaminitis R74.01
[2023-10-25] MEDS: lidocaine-epi 2% PF 1:200,000 20 mL SDV 10 ML INJECTION (14:27)
--- NOTE | 2023-10-25 14:43 | SUR.PHASEI ---
14:32 RECEIVED PT FROM OR STAFF. PT SLEEPING WITH SPONTANEOUS RESPIRATIONS. NSR ON MONITOR. 14:40 ORAL AIRWAY DC'ED. AIRWAY CLEAR. PT RESPONDS TO VERBAL .DENIES PAIN. GOOD CHEST RISE AND FALL.
--- NOTE | 2023-10-25 15:00 | SUR.PHASEI ---
15:00 AIRWAY PATENT. TOLERATING ICE CHIPS.
[2023-10-25 15:09] LABS: Lyme AB Screen <0.90 index
--- NOTE | 2023-10-25 15:15 | ANE.PACU2 ---
Inpatient post-anesthesia follow up: Airway intact: Yes Vital signs: Temperature 98.5 F Pulse Rate 69 Respiratory Rate 16 Blood Pressure 120/75 Pulse Oximetry 95 Oxygen Delivery Me thod Room Air Oxygen Flow Rate 8 Fraction of Inspir ed Oxygen Hydration adequate: Yes Nausea and vomiting: No Pain level: 1 Mental status: Baseline
[2023-10-25] MEDS: enoxaparin 40 mg/0.4 mL Syringe SUBCUT (20:55)
[2023-10-25] MEDS: diphenhydrAMINE 25 mg Capsule PO (23:25)
[2023-10-26 04:00] VITALS: BP 120/75; PULSE 69; RESP 16; TEMP 36.9; O2SAT 95
[2023-10-26] MEDS: linezolid 600 mg Tablet PO (05:07)
[2023-10-26] MEDS: piperacillin-tazobactam 3.375 GM in sodium chloride 0.9% (plus) 50 ML IV (05:08)
--- NOTE | 2023-10-26 05:46 | PC.NURSE ---
SHIFT SUMMARY At the beginning of the shift the patient stated several complaints to [facility] Walters stating that she was unhappy with IV antibiotics and was about to leave and go home. This nurse entered the room with the orientee, the patient was sitting in the bed and her was at bedside. The patient began explaining that she was supposed to get IV antibiotics at 1800, had not received them, and that she wasn't going to stay and would sign out AMA if she wasn't going to be getting them on time. The patient also stated she needed to take a shower because she felt gross. This nurse explained that her antibiotics were being switched to PO in preparation for her discharge, and that she only had one IV antibiotic that was due 1999. This nurse also explained that nothing scheduled for 1800 could be seen on the APR and that vancomycin had been discontinued. The patient was educated that it would not be possible to take a full shower this shift because the risk of introducing new bacteria into the surgical site was too great, but that sponge bath supplies could be brought to the room for her. The patient once again reiterated that she was very upset with the situation and that she knew she was supposed to discharge tomorrow but was concerned that she wouldn't be able to if she hadn't received her IV antibiotics. This nurse explained the current plan of care, discharge plan, and scheduled meds for the night and apologized for any confusion or miscommunication which took place, and brought bath supplies to the room for the patient. The patient then asked that her dressing be changed due to drainage. This nurse explained that the packing inside the wound cannot be changed since the surgeon typically performs the first dressing change after surgery, and that opening the area so soon after surgery poses an infection risk, but that the top lay of the dressing and tape could be changed. This nurse brought supplies to the room and removed the soft surgical dressing tape and abd pad. Layers of gauze covered the surgical site and packing, this nurse did not remove those and instead place a new abd pad over the gauze and applied fresh tape. After this the patient had a restful night without anymore concerns, she did not complain of pain or request any further interventions or medications.
[2023-10-26 07:39] VITALS: BP 122/72; PULSE 71; RESP 17; TEMP 36.9; O2SAT 97
[2023-10-26] MEDS: doxycycline 100 mg Tablet PO (08:57)
--- NOTE | 2023-10-26 10:31 | PM.DCS ---
Discharge Providers Date of Admission: 10/22/23 17:54 Date of Discharge: October 26, 2023 Attending Provider at Admission: Renato Caldera MD Attending Provider at Discharge: Renato Caldera MD Diagnoses at Discharge Discharge Diagnosis (1) Cellulitis: Status: Acute (2) Leukopenia: Status: Acute (3) Transaminitis: Status: Acute Reason for Visit Reason for Visit: spider bite Hospital Course Hospital Course Joanne Meneses is a 38 year old female with a past medical history of Essure control, history of , who presents [facility] for left arm and forearm swelling with drainage with fevers, chills. Patient tells me that roughly a week ago on Wednesday, she was working outside in her shop, with a metal Wes, she was sanding an object, when it backfired, resulting in a superficial linear laceration of her forearm, slight evidence of bleeding, but the wound was quite superficial she tells me, she that during night, noticed that she developed a bump in her left axilla, she is not sure if this was an insect bite, but over the next few days she started developing fevers, chills, fatigue, malaise, she tells me that along the left axilla she started developing an area of open drainage, with swelling, erythema, tenderness with surrounding erythema, she also started to develop erythema swelling and tenderness for the area that she had a superficial abrasion. She tells me that she does regularly pick takes off herself. She tells her that she saw her primary care provider she did receive a tetanus vaccination through her primary care. She also received 2 rounds of antibiotics including clindamycin, and Bactrim without significant improvement. Due to persistence of erythema, swelling, tenderness and persistent drainage with systemic symptoms of fevers and chills, she came to the emergency room. In the emergency room she was found to have a white blood cell count 0.75, neutrophilic and lymphocytic leukopenia, transaminitis, soft tissue ultrasound does not show any evidence of deep abscess, hospitalist team was called for admission This is a 38-year-old female, who was admitted to [facility] for cellulitis, abscess, left arm, forearm, with enlarged and tender lymph nodes, with leukopenia, neutrophilic, lymphocytic and transaminitis. Patient required IV antibiotics, patient was monitored for 48 hours on IV antibiotics, due to persistence of left axillary tenderness, palpable abscess General Surgery was consulted for consideration of incision and drainage. In addition infectious disease was consulted due to persistence of cellulitis. Patient had incision and drainage, cultures so far from surgical site growing gram-negative rods. Superficial drainage cultures also growing gram-negative rods, Pseudomonas, pansensitive. Overall patient clinically is improved, area of erythema of the forearm and arm have significantly resolved, she continues to have drainage from the axillary site, for which she is receiving dressing changes, packing changes. She will be discharged on 14 remaining days of p.o. ciprofloxacin, 4 days remaining p.o. doxycycline, dressing and packing changes as per general surgery's recommendations, follow-up with general surgery in 2 weeks. Follow-up with primary care in 1 week. Patient was advised if she were to have any fevers, chills, worsening of appearance of cellulitis, please go to the emergency room Physical Exam Const: COMMON NORMALS: no acute distress and patient oriented x3 Resp: COMMON NORMALS: normal respiratory effort, No retractions, No use of accessory muscles and clear to auscultation bilaterally AUSCULTATION: clear to auscultation bilaterally Cardio: COMMON NORMALS: regular rate, regular rhythm, S1 normal heart sound present and S2 normal heart sound present RATE: regular rate RHYTHM: regular rhythm HEART SOUNDS: S1 normal heart sound present and S2 normal heart sound present GI: COMMON NORMALS: Normal to inspection, nondistended, normoactive bowel sounds present and non-tender Extremity: COMMON NORMALS: no pedal edema Neuro: COMMON NORMALS: patient oriented x3 Psych: COMMON NORMALS: mental status grossly normal Discharge Data Studies Completed and Pending Completed Studies During Hospitalization Category Date Time Status CT forearm LT wo con* [id number] Routine Cat Scan 10/22/23 20:[address] humerus LT wo con* [id number] Routine Cat Scan 10/22/23 20:34 Completed US soft tissue and or extremity [US soft tissue/ Ultrasound 10/22/23 15:55 Completed extremity [id number]] Stat Pending at discharge Category Date Time Status AFB [Mycobacteria, Culture w/Fluor] Stat Lab 10/25/23 10:46 Uncollected Abscess Culture and Gram Stain Routine Lab 10/25/23 14:23 Results Abscess Culture and Gram Stain Stat Lab 10/25/23 10:46 Uncollected Anaerobic Culture Routine Lab 10/25/23 14:23 Received Anaerobic Culture Stat Lab 10/22/23 03:43 Results BMP [Basic Metabolic Panel] Stat Lab 10/26/23 08:16 Ordered Bartonella Species AB(IgG,IgM) Routine Lab 10/22/23 03:18 Received Blood Culture Stat Lab 10/22/23 17:38 Results CBC Auto Diff [Complete Blood Count w/Auto] Stat Lab 10/26/23 08:16 Ordered CRP [C Reactive Protein] Stat Lab 10/26/23 08:16 Ordered Fungal Culture not HR/SK/BL Stat Lab 10/22/23 03:43 Results Fungal Culture not HR/SK/BL Stat Lab 10/25/23 10:46 Uncollected Tick Panel Stat Lab 10/22/23 17:52 Results Wound Culture and Gram Stain Stat Lab 10/22/23 03:43 Results Radiology Impressions Soft Tissue Ultrasound 10/22/23 15:55 IMPRESSION: Minimal soft tissue edema. No abscess. Forearm CT 10/22/23 20:34 IMPRESSION: 1. Mild subcutaneous fat stranding along the extensor surface of the proximal forearm without abscess formation. 2. No acute osseous findings. Humerus CT 10/22/23 20:34 IMPRESSION: Mild subcutaneous fat stranding and mild skin thickening along the medial/posterior aspect of the upper arm and the anterior axilla. Findings may represent cellulitis. No abscess formation. No definite involvement of the muscular compartments and no evidence of acute osteomyelitis. Laboratory Results WBC 2.26 10^3/uL (3.29-11.43) L 10/25/23 04:47 RBC 4.47 10^6/uL (3.85-5.65) 10/25/23 04:47 Hgb 13.00 g/dL (11.27-16.99) 10/25/23 04:47 Hct 40.5 % (36-47) 10/25/23 04:47 MCV 90.6 fl (85-98) 10/25/23 04:47 MCH 29.1 pg (27-33) 10/25/23 04:47 MCHC 32.1 g/dL (30-55) 10/25/23 04:47 RDW 12.2 % (12.1-15.1) 10/25/23 04:47 Plt Count 271 10^3/cmm (157-399) 10/25/23 04:47 MPV 8.5 fL (7.4-10.4) 10/25/23 04:47 Neut % (Auto) 13.6 % 10/25/23 04:47 Lymph % (Auto) 55.8 % 10/25/23 04:47 [place] % (Auto) 17.7 % 10/25/23 04:47 Eos % (Auto) 0.0 % 10/25/23 04:47 Baso % (Auto) 1.8 % 10/25/23 04:47 Neut # (Auto) 0.31 10^3/uL (1.8-7.7) L* 10/25/23 04:47 Lymph # (Auto) 1.3 10^3/uL (0.8-4.8) 10/25/23 04:47 [place] # (Auto) 0.4 10^3/uL (0.2-0.9) 10/25/23 04:47 Eos # (Auto) 0.0 10^3/uL (0.0-0.8) 10/25/23 04:47 Baso # (Auto) 0.0 10^3/uL (0.0-0.1) 10/25/23 04:47 Nucleated RBC % (auto) 0 % 10/25/23 04:47 Nucleated RBCs # 0.0 /100WBC 10/25/23 04:47 ESR 24 mm/hr (0-15) H 10/22/23 16:08 PT 13.10 SECONDS (12.1-14.9) 10/22/23 16:08 INR 0.96 (0.8-1.2) 10/22/23 16:08 Sodium 139 mmol/L (136-145) 10/25/23 04:47 Potassium 3.9 mmol/L (3.5-5.1) 10/25/23 04:47 Chloride 107 mmol/L (98-107) 10/25/23 04:47 Carbon Dioxide 20 mmol/L (22-29) L 10/25/23 04:47 Anion Gap 15.9 (5-19) 10/25/23 04:47 BUN 5 mg/dL (6-20) L 10/25/23 04:47 Creatinine 0.6 mg/dL (0.5-0.9) 10/25/23 04:47 GFR Calculation 111.3 mL/min (90-130) 10/25/23 04:47 Glucose 108 mg/dL (65-115) 10/25/23 04:47 Calculated Osmolality 286 mOsm/kg (285-295) 10/25/23 04:47 Lactic Acid 1.9 mmol/L (0.5-2.2) 10/22/23 16:08 Calcium 8.6 mg/dL (8.5-10.5) 10/25/23 04:47 Ferritin 155 ng/mL (15-150) H 10/22/23 16:08 Total Bilirubin 0.2 mg/dL (0.15-1.2) 10/25/23 04:47 AST 16 U/L (0-32) 10/25/23 04:47 ALT 44 U/L (0-33) H 10/25/23 04:47 Alkaline Phosphatase 106 U/L (35-105) H 10/25/23 04:47 Creatine Kinase 48 U/L (26-192) 10/22/23 16:08 C-Reactive Protein 85.2 mg/L (0.0-4.9) H 10/22/23 16:08 Total Protein 6.3 g/dL (6.6-8.7) L 10/25/23 04:47 Albumin 3.4 g/dL (3.5-5.2) L 10/25/23 04:47 Globulin 2.9 g/dL (1.3-4.6) 10/25/23 04:47 Procalcitonin 0.06 ng/mL (0-0.5) 10/22/23 16:08 TSH 1.61 uIU/mL (0.27-4.20) 10/22/23 16:08 Ser , Semi-Qnt 1.00 mIU/mL 10/22/23 16:08 Urine Color Yellow (Yellow) 10/22/23 22:54 Urine Appearance Clear (CLEAR) 10/22/23 22:54 Urine pH 6.0 (5-7) 10/22/23 22:54 Ur Specific [place] 1.018 (1.005-1.030) 10/22/23 22:54 Urine Protein Negative (Negative) 10/22/23 22:54 Urine Glucose (UA) Negative (Normal) 10/22/23 22:54 Urine Ketones Negative (Negative) 10/22/23 22:54 Urine Blood Negative (Negative) 10/22/23 22:54 Urine Nitrate Negative (Negative) 10/22/23 22:54 Urine Bilirubin Negative (Negative) 10/22/23 22:54 Urine Urobilinogen 1.0 mg/dL (Negative) 10/22/23 22:54 Ur Leukocyte Esterase Negative (Negative) 10/22/23 22:54 Urine RBC 0-2 /hpf (0-2) 10/22/23 22:54 Urine WBC 0-5 /hpf (0-5) 10/22/23 22:54 Ur Squamous Epith Cells 6-10 /hpf (0-5) 10/22/23 22:54 Amorphous Sediment Not Reportable 10/22/23 22:54 Urine Bacteria None seen /hpf (NONE) 10/22/23 22:54 Hyaline Casts 0-4 /lpf H 10/22/23 22:54 Urine HCG, Qual Negative (Negative) 10/25/23 12:32 Vancomycin Trough 5.7 ug/mL (10-15) L 10/25/23 11:38 Lyme Ab (Western Blot) <0.90 index 10/22/23 17:52 C. difficile (PCR) Negative (Negative) 10/23/23 15:34 F. tularensis IgG Ab Cancelled 10/22/23 17:52 F. tularensis IgM Ab Cancelled 10/22/23 17:52 F. tularensis Interpretation Cancelled 10/22/23 17:52 Hepatitis A IgM Ab Non-reactive (Nonreactive) 10/22/23 16:08 Hep Bs Antigen Non-reactive (Nonreactive) 10/22/23 16:08 Hep B Core IgM Ab Non-reactive (Nonreactive) 10/22/23 16:08 Hepatitis C Antibody Non-reactive (Nonreactive) 10/22/23 16:08 HIV 1&2 Ab & HIV 1 Ag Non-reactive (Non-Reactiv) 10/22/23 16:08 HIV 1&2 Antibody Non-reactive (Non-Reactiv) 10/22/23 16:08 MRSA (PCR) Not detected (NOT DETECTED) 10/22/23 23:22 Vitals Last Vital Signs Temp 98.4 F 10/26/23 07:39 Pulse 71 10/26/23 07:39 Resp 17 10/26/23 07:39 BP 122/72 10/26/23 07:39 Pulse Ox 97 10/26/23 07:39 O2 Del Method Room Air 10/26/23 07:39 O2 Flow Rate 8 10/25/23 14:45 Discharge Plan Discharge Patient Disposition: Home Condition: Stable Prescriptions: New doxycycline monohydrate 100 mg Tablet 100 mg PO BID 4 Days Qty: 8 0RF hydrocodone-acetaminophen 7.5-325 mg Tablet 1 tab PO Q8H PRN (Reason: Moderate Pain) 5 Days Qty: 15 0RF ciprofloxacin HCl 500 mg tablet 500 mg PO BID 14 Days Qty: 28 0RF No Action No Known Home Medications Discharge Orders: Discharge Order (Routine); Ordered 10/26/23 Ordered By: Renato Caldera Referrals: Vijay Pineda DO [Physician] - 11/08/23 8:35 am () Discharge Diet: Regular Discharge Activity: Resume usual activity Patient Instructions: Acute Wound Care (DC), Opioid Safety, Post Anesthesia Care Activity Restrictions/Additional Instructions: - Please follow-up with primary care provider this week ? Please do dressing changes as prescribed -Take antibiotics as prescribed -Please use hydrocodone sparingly for pain, for dressing changes, do not drive or operate heavy machinery or drink while taking hydrocodone -If you develop fevers, chills please go the emergency room Discharge Attestations Time Spent in Discharge Care*: greater than 30 min Quality Metrics Clinical Quality Measures [ No reported AMI, CVA or VTE this stay] Coding Level of Care Code 22866 Total time (in minutes) for Discharge: 45 Diagnoses Cellulitis L03.90 Leukopenia D72.819 Transaminitis R74.01
--- NOTE | 2023-10-26 10:37 | PC.NURSE ---
This person called [facility] they stated that patient has only been seen there 1x and did not establish pcp with them. CM to find out who pcp is.
[2023-10-26 10:47] VITALS: RESP 16
[2023-10-26] MEDS: HYDROmorphone 1 mg/mL INJ 1 mL 0.5 MG IVP (10:47)
[2023-10-26 11:05] LABS: Basophils % 0.4 %; Hematocrit 40.4 % (36-47); Lymphocytes # 1.1 10^3/uL (0.8-4.8); Mean Corpuscular HGB Conc 33.4 g/dL (30-55); Mean Corpuscular Hemoglobin 28.8 pg (27-33); Mean Corpuscular Volume 86.1 fl (85-98); Mean Platelet Volume 8.7 fL (7.4-10.4); Monocytes # 0.2 10^3/uL (0.2-0.9); Monocytes % 7.7 %; Neutrophils % 37.9 %; Nucleated Red Blood Cells % 0 %; Platelet Count 419 10^3/cmm (157-399); Red Blood Count 4.69 10^6/uL (3.85-5.65); White Blood Count 2.59 10^3/uL (3.29-11.43)
--- NOTE | 2023-10-26 11:15 | PC.NURSE ---
Educated and demonstrated dressing packing and change. Pain med given prior, mildly effective. states understands dressing change, answered all question.
[2023-10-26 11:23] VITALS: BP 124/77; PULSE 76; RESP 18; TEMP 36.8; O2SAT 96
[2023-10-26 11:25] LABS: Anion Gap 16.4 (5-19); Blood Urea Nitrogen 5 mg/dL (6-20); Calcium 8.7 mg/dL (8.5-10.5); Carbon Dioxide 21 mmol/L (22-29); Chloride 107 mmol/L (98-107); Glomerular Filtration Rate 93.2 mL/min (90-130); Glucose 206 mg/dL (65-115); Osmolality Calculated 295 mOsm/kg (285-295); Potassium 3.4 mmol/L (3.5-5.1); Sodium 141 mmol/L (136-145)
[2023-10-26 12:02] LABS: Slide Review Slide Review Perform
[2023-10-26 12:04] LABS: Neutrophils # 0.98 10^3/uL (1.8-7.7)
[2023-10-26 12:52] VITALS: BP 124/77; PULSE 76; RESP 18; TEMP 36.8; O2SAT 96
[2023-10-28 16:55] LABS: Bartonella Henselae IgG AB NEGATIVE; Bartonella Henselae IgM AB NEGATIVE; Bartonella Quintana IgG AB NEGATIVE
[2023-10-29 16:39] LABS: RMSF IGG NOT DETECTED; RMSF IGM NOT DETECTED
[2023-10-29 17:08] LABS: E. Chaffeensis AB IGG <1:64; E. Chaffeensis AB IGM <1:20
[2023-10-29 23:35] LABS: F.tularensis IgG AB Serum Negative (Negative); F.tularensis IgM AB Serum Negative (Negative)
[2023-11-10 14:29] LABS: Bartonella Quintana IgM AB NEGATIVE
== END 2023-10-26 12:30 | disposition home or self-care (01) | DRG 603 ==
LOC: ER 18:48 → MEDSURG 19:12
PROVIDERS: Anesthesiology; Surgery; Admitting Provider Family Medicine; Emergency Provider Family Medicine; PCP Family Medicine; Visit Provider Family Medicine
PROC: 0H9CX0Z Drainage of Left Upper Arm Skin with Drainage Device, External Approach (ICD-10-PCS; principal; 2023-10-25 13:05)
DX: L03.114 Cellulitis of left upper limb (principal); L02.414 Cutaneous abscess of left upper limb; R74.01 Elevation of levels of liver transaminase levels; R59.0 Localized enlarged lymph nodes; B96.5 Pseudomonas (aeruginosa) (mallei) (pseudomallei) as the cause of diseases classified elsewhere
CPT/HCPCS: 36415; 73200; 76882; 80048; 80053; 80074; 80202; 81003; 81015; 81025; 82550; 82728; 83605; 84145; 84443; 84702; 85025; 85610; 85651; 86140; 86160; 86611; 86618; 86666; 86668; 86757; 87040; 87070; 87075; 87077; 87102; 87186; 87205; 87206; 87493; 87641; 87806; 96365; 96366; 96367; 96372; 99285; J0692; J1100; J1170; J1650; J1885; J2250; J2405; J2543; J3010; J3370; J7030; J7050